=== PATIENT | male | born 1955 | race Two or more races ===

== ENCOUNTER 2018-04-19 08:44 | Day surgery (SDC) | payer OTHER ==
[2018-04-19] MEDS ORDERED: PROPOFOL 40 ML (10:25)
== END 2018-04-19 11:22 | disposition home or self-care (01) ==
LOC: GIL 08:44
DX: Z12.11 Encounter for screening for malignant neoplasm of colon (principal); K57.90 Diverticulosis of intestine, part unspecified, without perforation or abscess without bleeding; K64.4 Residual hemorrhoidal skin tags; E78.5 Hyperlipidemia, unspecified; I10 Essential (primary) hypertension; E03.9 Hypothyroidism, unspecified
CPT/HCPCS: 45378